=== PATIENT | female | born 1980 | race Caucasian/White ===

== ENCOUNTER 2017-07-06 14:31 | Emergency (ER) | payer OTHER ==
[~2017-07-06] VITALS: Ht 152.4 cm; Wt 54.8 kg
[~2017-07-06 14:31] MED LIST changes: -HYDR-906 PO
[2017-07-06 14:48] VITALS: Ht 152.4 cm; Wt 54.8 kg
[2017-07-06] MEDS ORDERED: SOD CHLORIDE 0.9% 1,000 ML IV STA (16:23)
[2017-07-06] MEDS ORDERED: KETOROLAC 30 MG INJ IV STA (16:24)
[2017-07-06 17:02] LABS: BASOPHILS % 0.5 % (0.0-2.0); EOSINOPHILS # 0.1 10^3/ul (0.0-0.5); EOSINOPHILS % 0.8 % (0.0-7.0); HEMATOCRIT 37.9 % (37.0-47.0); HEMOGLOBIN 12.1 g/dl (12.0-16.0); LYMPHOCYTES # 2.7 10^3/ul (0.8-2.9); LYMPHOCYTES % 35.2 % (15.0-51.0); MEAN CORPUSCULAR HEMOGLOBIN 27.1 pg (29.0-33.0); MEAN CORPUSCULAR HGB CONC 31.9 g/dl (32.0-37.0); MEAN PLATELET VOLUME 10.2 fl (7.4-10.4); MONOCYTE # 0.5 10^3/ul (0.3-0.9); MONOCYTES % 6.4 % (0.0-11.0); NEUTROPHIL # 4.3 10^3/ul (1.6-7.5); PLATELET COUNT 350 10^3/UL (140-415); RED BLOOD COUNT 4.46 10^6/ul (4.20-5.40); RED CELL DISTRIBUTION WIDTH 13.6 % (11.5-14.5); WHITE BLOOD COUNT 7.5 10^3/ul (4.8-10.8)
[2017-07-06 17:13] LABS: ADD UMIC NO; UR ASCORBIC ACID NEGATIVE (NEGATIVE); UR BACTERIA FEW /HPF (NONE SEEN); UR BILIRUBIN (Dip) NEGATIVE (NEGATIVE); UR BLOOD (Dip) NEGATIVE (NEGATIVE); UR CLARITY SLIGHTLY CLOUDY (CLEAR); UR COLOR YELLOW (YELLOW); UR GLUCOSE (Dip) NEGATIVE (NEGATIVE); UR KETONES (Dip) TRACE mg/dL (NEGATIVE); UR LEUKOCYTE ESTERASE (Dip) NEGATIVE Leu/ul (NEGATIVE); UR MUCUS MANY /HPF (NONE SEEN); UR NITRITE (Dip) NEGATIVE (NEGATIVE); UR RBC 1 /HPF (0-5); UR SPECIFIC GRAVITY (Dip) 1.021 (1.003-1.030); UR SQUAMOUS EPITHELIAL CELL FEW /HPF (FEW); UR TOTAL PROTEIN (Dip) NEGATIVE (NEGATIVE); UR UROBILINOGEN (Dip) NEGATIVE (NEGATIVE)
--- NOTE | 2017-07-06 17:15 | RADRPT ---
PROCEDURE: US right upper quadrant abdomen CLINICAL INDICATION: Abdominal pain. TECHNIQUE: Multiple real-time images were acquired of the abdomen right upper quadrant COMPARISON: Chest CT angiogram 01/31/1969 but no prior abdominal imaging studies are available for comparison FINDINGS: The liver is within normal limits in size. Liver parenchyma diffuse heterogeneity. The main portal vein is patent with hepatopetal blood flow. The partially distended gallbladder is unremarkable. There is no abnormal pericholecystic fluid or gallbladder wall thickening. No intrahepatic or extrahepatic bile duct dilation. The common bile d uct measures 2.8 mm in diameter. Portions of the pancreas are obscured by overlying bowel gas; the visualized portions of the pancrea s are unremarkable. The right kidney measures 9.6 cm in length. The right kidney is unremarkable. No right upper quadrant ascites or right hydronephrosis seen. Right lower quadrant sonographic inter rogation reveals no abnormality; the appendix is not identified. IMPRESSION: 1. The partially distended gallbladder is unremarkable. The pancreas is partially obscured by overl yosef bowel gas. 2. Liver parenchyma diffuse heterogeneity is nonspecific but may be secondary to fatty liver, though other etiologies are possible. RPTAT: TT Physician Tamar Date Time Electronically viewed and signed by Physician Tamar on 07/06/2017 17:15 ROLY/
[2017-07-06 17:22] LABS: ALBUMIN 4.4 g/dl (3.3-4.9); ALBUMIN/GLOBULIN RATIO 1.37; BILIRUBIN,INDIRECT 0.3 mg/dl (0-1.1); BILIRUBIN,TOTAL 0.3 mg/dl (0.2-1.3); CALCIUM 8.9 mg/dl (8.4-10.2); CREATININE 0.58 mg/dl (0.44-1.00); TOTAL PROTEIN 7.6 g/dl (6.1-8.1)
[2017-07-06] MEDS ORDERED: SOD CHLORIDE 0.9% 100 ML ONE (17:53)
[2017-07-06] MEDS ORDERED: IOHEXOL 300MG/ML 150 ML BTL ONE (17:53)
--- NOTE | 2017-07-06 18:48 | RADRPT ---
PROCEDURE: CT ABDOMEN AND PELVIS WITH CONTRAST CLINICAL INDICATION: 37 years of age, female. Right abdominal pain and nausea. TECHNIQUE: CT of the abdomen and pelvis was performed following administration of 90 mL IV Omnipaqu e-300. Oral contrast was not administered prior to the examination. Coronal and sagittal reformatted images were obtained from the axial source images. Images were revi ewed on a high-resolution PACS workstation. DICOM images are available. Dose information: Based on a 32 cm phantom, the estimated radiation dose (CTDIvol mGy for each serie s in this exam is 5.9. The estimated cumulative dose (DLP mGy-cm) is 311. One or more of the following dose reduction techniques were used: - Automated exposure control. - Adjustment of the mA and/or kV according to patient size. - Use of iterative reconstruction technique. COMPARISON: Limited abdominal ultrasound from the same day FINDINGS: LUNG BASES: Normal. ABDOMEN/PELVIS: Liver: Normal size and attenuation. No focal lesions are identified Portal veins, splenic vein and S MV are patent. Hepatic veins are patent. Gallbladder: Normal. Bile ducts: No intrahepatic or extrahepatic biliary duct dilatation. Spleen: Normal. Pancreas: Normal. Adrenal glands: Normal. Kidneys and ureters: Normal. Negative for urinary calculi or hydronephrosis. Aorta and IVC: Aorta is normal caliber and patent. IVC is patent. Lymph nodes: Normal. Gastrointestinal tract: Normal. Appendix: Normal Bladder: Normal. Pelvic Organs: The uterus and adnexa are unremarkable. 2.2 cm cyst right ovary likely represents a d ominant follicle and is within normal limits in a patient who is still having menstrual cycles. Peritoneal cavity: No free fluid or free intraperitoneal air. Abdominal wall: Normal. BONES: Musculoskeletal: There has been a multilevel posterior decompression involving L5 and the upper sacr um. There have been laminotomies from L2-L4 with surgical plates and screws transfixing bilateral la kathy at each of these levels. No suspicious bone lesions. IMPRESSION: 1. Unremarkable CT of the abdomen and pelvis with contrast. Cause for right lower quadrant pain is not evident. Normal appendix. 2. Postoperative changes in the spine as described. RPTAT: HCTS Claudiay Sadro, Physician Date Time Electronically viewed and signed by Estephanie Reyez, Physician on 07/06/2017 18:47 CS/
[2017-07-06] MEDS ORDERED: HYDR-906 PO (19:14)
[2017-07-06 19:27] VITALS: BP 133/95; PULSE 99; RESP 16; TEMP 98.1
--- NOTE | 2017-07-06 21:13 | ERD ---
ER Documentation Chief Complaint Chief Complaint PT referred by PMD to r/o apendicitis. HPI 37-year-old female complaining of right lower quadrant pain. Patient states that she has had this lower quadrant pain for the last 5-6 months. She was seen by her PMD Dr. Goncalves and he had a CT scan done which showed appendicitis. CT scan was done on 06/26/2017. Patient was told to come to the emergency room but waited 10 days to be seen. Patient states that the pain comes and goes and is worse with walking. Denies vomiting. Denies chest pain or shortness of breath. Denies diarrhea. Denies fever. ROS All systems reviewed and are negative except as per history of present illness. Medications Home Meds Active Scripts Hydrocodone/Acetaminophen (Touchet 5-325 Tablet) 1 Each Tablet, 1 TAB PO Q6H Y for PAIN, #7 TAB Prov:MARKO HERNDON PA-C 07/06/17 Reported Medications Zolpidem Tartrate* (Ambien*) 10 Mg Tablet, 10 MG PO QHS Y for INSOMNIA, TAB 07/06/17 Gabapentin* (Gabapentin*) 300 Mg Capsule, 300 MG PO TID, #90 CAP 01/04/16 Discontinued Reported Medications Atenolol* (Atenolol*) 25 Mg Tablet, 25 MG PO DAILY, #30 TAB 02/01/16 Tramadol HCl (Tramadol HCl) 50 Mg Tablet, 50 MG PO TID, #90 TAB 01/04/16 Discontinued Scripts Lansoprazole* (Prevacid*) 30 Mg Capsule., 30 MG PO DAILY, #20 Prov:SHAUNA WIGGINS MD 02/01/16 Ondansetron Hcl* (Zofran* ODT) 8 mg -ODT Tab.disper, 8 MG PO Q6 Y for NAUSEA AND /OR VOMITING, #10 TAB Prov:SHAUNA WIGGINS MD 02/01/16 Naproxen* (Naprosyn*) 500 Mg Tablet, 500 MG PO BID Y for PAIN for 30 Days, #60 TAB Prov:LOY GUAMAN M.D. 01/08/16 Duloxetine Hcl* (Cymbalta*) 30 Mg Capsule., 60 MG PO DAILY for 30 Days, #30 Prov:LOY GUAMAN M.D. 01/08/16 Cyclobenzaprine Hcl* (Cyclobenzaprine Hcl*) 10 Mg Tablet, 10 MG PO TID Y for MUSCLE SPASMS for 14 Days, #50 TAB Prov:LOY GUAMAN M.D. 01/08/16 Allergies Allergies: Coded Allergies: No Known Allergy (Unverified , 02/01/16) PMhx/Soc History of Surgery: Yes (BACK SURGERY, LEED, LAPROSCOPY) Anesthesia Reaction: No Hx Neurological Disorder: No Hx Respiratory Disorders: No Hx Cardiac Disorders: Yes (HYPERTENSION) Hx Psychiatric Problems: No Hx Miscellaneous Medical Probl: No Hx Alcohol Use: No Hx Substance Use: No Hx Tobacco Use: No Smoking Status: Never smoker Physical Exam Vitals Vital Signs Date Time Temp Pulse Resp B/P Pulse Ox O2 Delivery O2 Flow Rate FiO2 07/06/17 19:27 98.1 99 16 133/95 99 Room Air 07/06/17 14:48 98.4 89 18 121/94 98 Physical Exam GENERAL: The patient is well-appearing, well-nourished, in no acute distress CHEST: Clear to auscultation bilaterally. There are no rales, wheezes or rhonchi. HEART: Regular rate and rhythm. No murmurs, clicks, rubs or gallops. No S3 or S4. ABDOMEN: Normal Active bowel sounds. Mild tenderness palpation the right lower quadrant. No pain with jumping. No rebound tenderness. No distention. No organomegaly BACK: No midline or flank tenderness. Result Diagram: 07/06/17 1640 07/06/17 1640 Results 24 hrs Laboratory Tests Test 07/06/17 16:40 07/06/17 16:50 White Blood Count 7.510^3/ul Red Blood Count 4.4610^6/ul Hemoglobin 12.1g/dl Hematocrit 37.9% Mean Corpuscular Volume 85.0fl Mean Corpuscular Hemoglobin 27.1pg Mean Corpuscular Hemoglobin Concent 31.9g/dl Red Cell Distribution Width 13.6% Platelet Count 20453^3/UL Mean Platelet Volume 10.2fl Neutrophils % 57.0% Lymphocytes % 35.2% Monocytes % 6.4% Eosinophils % 0.8% Basophils % 0.5% Nucleated Red Blood Cells % 0.0/100WBC Neutrophils # 4.310^3/ul Lymphocytes # 2.710^3/ul Monocytes # 0.510^3/ul Eosinophils # 0.110^3/ul Basophils # 0.010^3/ul Nucleated Red Blood Cells # 0.010^3/ul Sodium Level 141mmol/L Potassium Level 4.0mmol/L Chloride Level 102mmol/L Carbon Dioxide Level 28mmol/L Anion Gap 15 Blood Urea Nitrogen 9mg/dl Creatinine 0.58mg/dl Glucose Level 93mg/dl Calcium Level 8.9mg/dl Total Bilirubin 0.3mg/dl Direct Bilirubin 0.00mg/dl Indirect Bilirubin 0.3mg/dl Aspartate Amino Transf (AST/SGOT) 23IU/L Alanine Aminotransferase (ALT/SGPT) 33IU/L Alkaline Phosphatase 106IU/L Total Protein 7.6g/dl Albumin 4.4g/dl Globulin 3.20g/dl Albumin/Globulin Ratio 1.37 Lipase 64U/L Serum HCG, Qualitative NEGATIVE Urine Color YELLOW Urine Clarity SLIGHTLY CLOUDY Urine pH 5.0 Urine Specific [place] 1.021 Urine Ketones TRACEmg/dL Urine Nitrite NEGATIVEmg/dL Urine Bilirubin NEGATIVEmg/dL Urine Urobilinogen NEGATIVEmg/dL Urine Leukocyte Esterase NEGATIVELeu/ul Urine Microscopic RBC 1/HPF Urine Microscopic WBC 5/HPF Urine Squamous Epithelial Cells FEW/HPF Urine Bacteria FEW/HPF Urine Mucus MANY/HPF Urine Hemoglobin NEGATIVEmg/dL Urine Glucose NEGATIVEmg/dL Urine Total Protein NEGATIVEmg/dl Current Medications Medications (Trade) Dose Ordered Sig/Debby Route PRN Reason Start Time Stop Time Status Last Admin Dose Admin Sodium Chloride (NS) 1,000 ml @ 1,000 mls/hr Q1H STAT IV 07/06/17 16:23 07/06/17 17:22 DC 07/06/17 16:51 Ketorolac Tromethamine (Toradol) 30 mg ONCE STAT IV 07/06/17 16:24 07/06/17 16:25 DC 07/06/17 17:06 IV Flush 10 ml 10 ml STK-MED ONCE .ROUTE 07/06/17 17:53 07/06/17 17:54 DC 07/06/17 18:12 Sodium Chloride (NS) 100 ml @ ud STK-MED ONCE .ROUTE 07/06/17 17:53 07/06/17 17:54 DC 07/06/17 18:12 Iohexol (Omnipaque 300mg/ ml) 150 ml STK-MED ONCE .ROUTE 07/06/17 17:53 07/06/17 17:54 DC 07/06/17 18:13 Procedures/MDM DIAGNOSTIC IMAGING REPORT Patient: WENDY WEBBER : 1980 Age: 37 Sex: F MR #: [id number] DOS: 07/06/17 1738 Ordering MD: TIKA HERNDON PA-C Location: E Room/Bed: PROCEDURE: CT ABDOMEN AND PELVIS WITH CONTRAST CLINICAL INDICATION: 37 years of age, female. Right abdominal pain and nausea. TECHNIQUE: CT of the abdomen and pelvis was performed following administration of 90 mL IV Omnipaque-300. Oral contrast was not administered prior to the examination. Coronal and sagittal reformatted images were obtained from the axial source images. Images were reviewed on a high-resolution PACS workstation. DICOM images are available. Dose information: Based on a 32 cm phantom, the estimated radiation dose ( CTDIvol mGy for each series in this exam is 5.9. The estimated cumulative dose ( DLP mGy-cm) is 311. One or more of the following dose reduction techniques were used: - Automated exposure control. - Adjustment of the mA and/or kV according to patient size. - Use of iterative reconstruction technique. COMPARISON: Limited abdominal ultrasound from the same day FINDINGS: LUNG BASES: Normal. ABDOMEN/PELVIS: Liver: Normal size and attenuation. No focal lesions are identified Portal veins , splenic vein and SMV are patent. Hepatic veins are patent. Gallbladder: Normal. Bile ducts: No intrahepatic or extrahepatic biliary duct dilatation. Spleen: Normal. Pancreas: Normal. Adrenal glands: Normal. Kidneys and ureters: Normal. Negative for urinary calculi or hydronephrosis. Aorta and IVC: Aorta is normal caliber and patent. IVC is patent. Lymph nodes: Normal. Gastrointestinal tract: Normal. Appendix: Normal Bladder: Normal. Pelvic Organs: The uterus and adnexa are unremarkable. 2.2 cm cyst right ovary likely represents a dominant follicle and is within normal limits in a patient who is still having menstrual cycles. Peritoneal cavity: No free fluid or free intraperitoneal air. Abdominal wall: Normal. BONES: Musculoskeletal: There has been a multilevel posterior decompression involving L5 and the upper sacrum. There have been laminotomies from L2-L4 with surgical plates and screws transfixing bilateral lamina at each of these levels. No suspicious bone lesions. IMPRESSION: 1. Unremarkable CT of the abdomen and pelvis with contrast. Cause for right lower quadrant pain is not evident. Normal appendix. 2. Postoperative changes in the spine as described. DIAGNOSTIC IMAGING REPORT Patient: WENDY WEBBER : 1980 Age: 37 Sex: F MR #: [id number] DOS: 07/06/17 1623 Ordering MD: TIKA HERNDON PA-C Location: [facility] Room/Bed: PROCEDURE: US right upper quadrant abdomen CLINICAL INDICATION: Abdominal pain. TECHNIQUE: Multiple real-time images were acquired of the abdomen right upper quadrant COMPARISON: Chest CT angiogram 01/31/1969 but no prior abdominal imaging studies are available for comparison FINDINGS: The liver is within normal limits in size. Liver parenchyma diffuse heterogeneity. The main portal vein is patent with hepatopetal blood flow. The partially distended gallbladder is unremarkable. There is no abnormal pericholecystic fluid or gallbladder wall thickening. No intrahepatic or extrahepatic bile duct dilation. The common bile duct measures 2.8 mm in diameter. Portions of the pancreas are obscured by overlying bowel gas; the visualized portions of the pancreas are unremarkable. The right kidney measures 9.6 cm in length. The right kidney is unremarkable. No right upper quadrant ascites or right hydronephrosis seen. Right lower quadrant sonographic interrogation reveals no abnormality; the appendix is not identified. IMPRESSION: 1. The partially distended gallbladder is unremarkable. The pancreas is partially obscured by overlying bowel gas. 2. Liver parenchyma diffuse heterogeneity is nonspecific but may be secondary to fatty liver, though other etiologies are possible. ER Course: 1L NS given in ED MDM: 37 yr old female complaining of abdominal pain. Patient CT scan does not show signs of appendicitis. Patient's blood work and imaging is within normal limits. Patient may have chronic appendicitis but does not need an emergent appendectomy at this time. Patient is discharged with strict ER precautions. This case was discussed with Dr. Servin prior to discharge. Patient is discharged and told to follow-up with PMD within the next 1-[address] scan results. Patient is told symptoms change or worsen to return immediately to the ER. All questions answered discharge. Departure Diagnosis: Primary Impression: Abdominal pain Condition: Stable Patient Instructions: Abdominal Pain, Unknown Cause, (Female) Referrals: CLAUDETTE GONCALVES MD (PCP) Additional Instructions: FOLLOW UP WITH YOUR PRIMARY CARE PHYSICIAN TOMORROW.Return to this facility if you are not improving as expected. MARKO HERNDON PA-C Jul 06, 2017 21:13
== END 2017-07-06 19:44 | disposition home or self-care (01) ==
LOC: FTE 14:31
DX: R10.31 Right lower quadrant pain (principal); I10 Essential (primary) hypertension
CPT/HCPCS: 36415; 74177; 76705; 80053; 81001; 83690; 84703; 85025; 96374; J1885; J7030; Q9967; Z7502; Z7610; 81003

== ENCOUNTER → 2017-07-06 | Day surgery (SDC) | payer BC, OTHER ==
[~2017-07-06] VITALS: Ht 152.4 cm; Wt 55.2 kg
[~2017-07-06] MED LIST: ATEN-51 PO; CYCL-319 PO; DULO30CA45 PO; GABA300C16 PO; HYDR-906 PO; LANS30CA47 PO; NAPR-260 PO; TRAM50TA2 PO; ZOF8 PO; ZOLP10TA PO
[2017-07-06 14:17] VITALS: Ht 152.4 cm; Wt 55.2 kg
== END | disposition home or self-care (01) ==
LOC: GIL 13:38
PROVIDERS: ATTEND Internal Medicine Gastroenterology
DX: R10.13 Epigastric pain (principal); Z53.9 Procedure and treatment not carried out, unspecified reason

== ENCOUNTER 2017-08-22 13:53 | Day surgery (SDC) | END 2017-08-22 19:00 | disposition home or self-care (01) ==